=== PATIENT | male | born 1960 | race Caucasian/White ===

== ENCOUNTER → 2021-05-19 | Outpatient (CLI) | payer BC ==
[~2021-05-19] MED LIST: ALLOPURINOL300 MG PO; COLACE100 MG PO; COLCRYS0.6 MG PO; INDOCIN25 MG PO; LISINOPRIL5 MG PO; MELOXICAM5 MG PO; NKHM; OMEPRAZOLE40 MG PO; PERCOCET 5-3251 EACH PO; VICODIN 500 MG-1 TAB PO; ZOFRAN4 MG PO
== END | disposition home or self-care (01) ==
LOC: LAB 12:39 → COVID19 12:39
PROVIDERS: ATTEND Surgery
DX: Z01.818 Encounter for other preprocedural examination (principal); Z20.822 Contact with and (suspected) exposure to COVID-19

== ENCOUNTER → 2021-05-23 | Day surgery (SDC) | payer BC ==
[2021-05-19 13:04] VITALS: BP 169/90
[~2021-05-23] VITALS: Ht 187.9 cm; Wt 114.8 kg
[2021-05-23 09:30] VITALS: BP 168/99
[2021-05-23 11:08] VITALS: BP 166/107
[2021-05-23 11:23] VITALS: BP 163/106
[2021-05-23 11:38] VITALS: BP 149/94
[2021-05-23 11:53] VITALS: BP 163/91
== END | disposition home or self-care (01) ==
LOC: SDC 05-16 13:15
PROVIDERS: ATTEND Surgery
DX: K43.6 Other and unspecified ventral hernia with obstruction, without gangrene (principal); I10 Essential (primary) hypertension; M19.90 Unspecified osteoarthritis, unspecified site; K21.9 Gastro-esophageal reflux disease without esophagitis; M10.9 Gout, unspecified; Z98.890 Other specified postprocedural states; Z79.899 Other long term (current) drug therapy

== ENCOUNTER → 2022-02-10 | Outpatient (CLI) | payer BC ==
[2022-02-10 15:42] LABS: BILIRUBIN Negative (Negative); BLOOD Trace-Lysed (Negative); CLARITY Clear (Clear); COLOR Yellow (Yellow); GLUCOSE Negative (Negative); HEMATOCRIT 45.6 % (42.0-52.0); KETONE Negative (Negative); LEUKO ESTERASE Negative (Negative); MEAN CELL VOLUME 89.1 fl (80.0-94.0); MEAN CORPUSCULAR HGB 30.9 pg (27.0-31.0); MEAN CORPUSCULAR HGB CONC 34.6 g/dl (33.0-37.0); MEAN PLATELET VOLUME 10.4 fl (9.6-12.3); NITRITE Negative (Negative); PLATELET COUNT AUTOMATED 295 10*3/uL (130-400); RED BLOOD COUNT 5.12 10*6/uL (4.50-5.90); RED CELL DISTRI WIDTH 13.4 % (0-14.5); SPECIFIC GRAVITY 1.015 (1.001-1.030); UROBILINOGEN 0.2 E.U./dl (0.0-1.0); WHITE BLOOD COUNT 19.4 10*3/uL (4.8-10.8)
[2022-02-10 15:45] LABS: MANUAL DIFF REFLEX YES
[2022-02-10 15:53] LABS: BACTERIA 2+; EPITHELIAL CELLS 0-2
[2022-02-10 15:58] LABS: ALKALINE PHOSPHATASE 99 U/L (45-117); BUN 25 mg/dl (7-24); CHLORIDE 106 mmol/L (98-107); CREATININE 0.98 mg/dL (0.70-1.30); POTASSIUM 4.1 mmol/L (3.5-5.1); SGOT/AST 6 IU/L (3-35); SGPT/ALT 26 U/L (12-78); SODIUM 135 mmol/L (136-145); TOTAL PROTEIN 7.6 gm/dL (6.4-8.2)
[2022-02-10 16:24] LABS: PLATELET SUFFICIENCY NORMAL (NORMAL); TOTAL CELLS COUNTED 100 #CELLS
[2022-02-10 16:35] LABS: ACT PARTIAL THROMBO TIME 24.6 SECONDS (20.0-32.1)
== END | disposition home or self-care (01) ==
LOC: LAB 14:55
PROVIDERS: ATTEND Orthopaedic Surgery
DX: Z01.818 Encounter for other preprocedural examination (principal); M25.362 Other instability, left knee; M17.12 Unilateral primary osteoarthritis, left knee; R94.31 Abnormal electrocardiogram [ECG] [EKG]

== ENCOUNTER → 2022-02-21 | Outpatient (CLI) | payer BC ==
[2022-02-21 12:26] LABS: BASO # 0.1 10*3/uL (0.0-0.1); BASO % 0.5 % (0.0-1.0); EOS # 0.2 10*3/uL (0.0-0.4); EOS % 1.9 % (1.0-4.0); LYMPH # 1.7 10*3/uL (1.3-4.4); LYMPH % 15.7 % (27.0-41.0); MEAN CORPUSCULAR HGB 31.3 pg (27.0-31.0); MEAN CORPUSCULAR HGB CONC 34.8 g/dl (33.0-37.0); MEAN PLATELET VOLUME 9.7 fl (9.6-12.3); MONO # 1.1 10*3/uL (0.1-1.0); NEUT # 7.6 10*3/uL (2.3-7.9); PLATELET COUNT AUTOMATED 188 10*3/uL (130-400); RED BLOOD COUNT 4.89 10*6/uL (4.50-5.90); RED CELL DISTRI WIDTH 13.2 % (0-14.5); WHITE BLOOD COUNT 10.7 10*3/uL (4.8-10.8)
== END | disposition home or self-care (01) ==
LOC: LAB 12:10
PROVIDERS: ATTEND Family Medicine
DX: D72.829 Elevated white blood cell count, unspecified (principal)

== ENCOUNTER → 2023-04-28 | Outpatient (CLI) | payer BC ==
[2023-04-28 07:42] LABS: BUN 15 mg/dl (9-23); CHLORIDE 110 mmol/L (98-107); CHOLESTEROL 144 mg/dL (<200); LDL CHOLESTEROL 83 mg/dL (9-159); POTASSIUM 4.1 mmol/L (3.4-5.1); THYROID STIM HORMONE (HS) 1.399 uIU/ml (0.550-4.780); TRIGLYCERIDES 57 mg/dl (<150)
== END | disposition home or self-care (01) ==
LOC: LAB 07:02
PROVIDERS: ATTEND Family Medicine
DX: I10 Essential (primary) hypertension (principal); R73.9 Hyperglycemia, unspecified

== ENCOUNTER → 2023-05-29 | Outpatient (CLI) | payer BC | END | disposition home or self-care (01) | LOC: US 14:27 | PROVIDERS: ATTEND Family Medicine | DX: I80.01 Phlebitis and thrombophlebitis of superficial vessels of right lower extremity (principal) ==

== ENCOUNTER → 2023-11-21 | Outpatient (CLI) | payer BC ==
[2023-11-21 07:37] LABS: BASO # 0.1 10*3/uL (0.0-0.1); BASO % 0.7 % (0.0-1.0); EOS # 0.4 10*3/uL (0.0-0.4); EOS % 4.7 % (1.0-4.0); LYMPH # 1.6 10*3/uL (1.3-4.4); LYMPH % 21.9 % (27.0-41.0); MEAN CELL VOLUME 94.2 fl (80.0-94.0); MEAN CORPUSCULAR HGB 30.8 pg (27.0-31.0); MEAN CORPUSCULAR HGB CONC 32.7 g/dl (33.0-37.0); MEAN PLATELET VOLUME 9.7 fl (9.6-12.3); MONO # 0.5 10*3/uL (0.1-1.0); MONO % 7.1 % (3.0-9.0); NEUT # 4.9 10*3/uL (2.3-7.9); NEUT % 65.3 % (47.0-73.0); PLATELET COUNT AUTOMATED 248 10*3/uL (130-400); RED CELL DISTRI WIDTH 13.5 % (0-14.5); WHITE BLOOD COUNT 7.4 10*3/uL (4.8-10.8)
[2023-11-21 07:47] LABS: ACT PARTIAL THROMBO TIME 25.6 SECONDS (20.0-32.1)
[2023-11-21 07:53] LABS: BILIRUBIN Negative (Negative); BLOOD Negative (Negative); CLARITY Clear (Clear); COLOR Dark Yellow (Yellow); GLUCOSE Negative (Negative); KETONE Trace (Negative); LEUKO ESTERASE Negative (Negative); NITRITE Negative (Negative); SPECIFIC GRAVITY 1.025 (1.001-1.030)
[2023-11-21 08:09] LABS: MUCOUS 1+; RBC 0-2 rbc/hpf (0-2)
[2023-11-21 08:19] LABS: ALKALINE PHOSPHATASE 115 U/L (46-116); BUN 16 mg/dl (9-23); CHLORIDE 108 mmol/L (98-107); POTASSIUM 4.6 mmol/L (3.4-5.1); SGPT/ALT 30 U/L (5-49); TOTAL PROTEIN 7.5 gm/dL (6.0-8.0)
== END | disposition home or self-care (01) ==
LOC: LAB 07:15
PROVIDERS: ATTEND Orthopaedic Surgery
DX: Z01.818 Encounter for other preprocedural examination (principal); M17.11 Unilateral primary osteoarthritis, right knee; M23.91 Unspecified internal derangement of right knee; M25.361 Other instability, right knee

== ENCOUNTER → 2024-01-28 | Outpatient (CLI) | payer BC | END | disposition home or self-care (01) | LOC: US 09:30 | PROVIDERS: ATTEND Orthopaedic Surgery | DX: M79.651 Pain in right thigh (principal); R60.0 Localized edema; R20.0 Anesthesia of skin ==

== ENCOUNTER → 2024-02-08 | Outpatient (CLI) | payer BC ==
[2024-02-08 14:46] LABS: BILIRUBIN Negative (Negative); BLOOD Negative (Negative); CLARITY Clear (Clear); COLOR Yellow (Yellow); GLUCOSE Negative (Negative); KETONE 1+ (Negative); LEUKO ESTERASE Negative (Negative); NITRITE Negative (Negative); PH 5.5 (4.5-8.0); UROBILINOGEN 0.2 E.U./dl (0.0-1.0)
[2024-02-08 14:47] LABS: BASO # 0.1 10*3/uL (0.0-0.1); BASO % 0.7 % (0.0-1.0); EOS # 0.6 10*3/uL (0.0-0.4); EOS % 6.1 % (1.0-4.0); HEMATOCRIT 44.9 % (42.0-52.0); LYMPH # 2.5 10*3/uL (1.3-4.4); LYMPH % 26.8 % (27.0-41.0); MEAN CELL VOLUME 91.6 fl (80.0-94.0); MEAN CORPUSCULAR HGB CONC 32.7 g/dl (33.0-37.0); MEAN PLATELET VOLUME 9.6 fl (9.6-12.3); MONO # 0.8 10*3/uL (0.1-1.0); MONO % 8.6 % (3.0-9.0); NEUT # 5.3 10*3/uL (2.3-7.9); NEUT % 57.5 % (47.0-73.0); PLATELET COUNT AUTOMATED 239 10*3/uL (130-400); RED CELL DISTRI WIDTH 13.9 % (0-14.5); WHITE BLOOD COUNT 9.2 10*3/uL (4.8-10.8)
[2024-02-08 15:06] LABS: ALKALINE PHOSPHATASE 108 U/L (46-116); BUN 14 mg/dl (9-23); CHLORIDE 102 mmol/L (98-107); POTASSIUM 4.2 mmol/L (3.4-5.1); SGPT/ALT 18 U/L (5-49); TOTAL PROTEIN 7.6 gm/dL (6.0-8.0)
[2024-02-08 15:17] LABS: EPITHELIAL CELLS 0-2; RBC 0-2 rbc/hpf (0-2); WBC 0-2 wbc/hpf (0-5)
== END | disposition home or self-care (01) ==
LOC: LAB 14:25
PROVIDERS: ATTEND Family Medicine
DX: R60.9 Edema, unspecified (principal)

== ENCOUNTER → 2025-03-02 | Outpatient (CLI) | payer MEDICARE, OTHER ==
[2025-03-02 08:04] LABS: BASO # 0.1 10*3/uL (0.0-0.1); BASO % 0.8 % (0.0-1.0); EOS # 0.3 10*3/uL (0.0-0.4); EOS % 5.1 % (1.0-4.0); HEMATOCRIT 41.5 % (42.0-52.0); MEAN CELL VOLUME 91.2 fl (80.0-94.0); MEAN CORPUSCULAR HGB 31.4 pg (27.0-31.0); MEAN CORPUSCULAR HGB CONC 34.5 g/dl (33.0-37.0); MONO # 0.9 10*3/uL (0.1-1.0); MONO % 14.9 % (3.0-9.0); NEUT # 3.3 10*3/uL (2.3-7.9); NEUT % 52.9 % (47.0-73.0); PLATELET COUNT AUTOMATED 216 10*3/uL (130-400); RED BLOOD COUNT 4.55 10*6/uL (4.50-5.90); RED CELL DISTRI WIDTH 13.8 % (0-14.5); WHITE BLOOD COUNT 6.3 10*3/uL (4.8-10.8)
[2025-03-02 08:52] LABS: ALKALINE PHOSPHATASE 111 U/L (46-116); BUN 13 mg/dl (9-23); CHLORIDE 104 mmol/L (98-107); CHOLESTEROL 144 mg/dL (<200); CPK 85 U/L (34-171); FREE T4 1.02 ng/dl (0.89-1.76); LDL CHOLESTEROL 75 mg/dL (9-159); POTASSIUM 4.2 mmol/L (3.4-5.1); SGPT/ALT 47 U/L (5-49); TRIGLYCERIDES 101 mg/dl (<150); VITAMIN D, 25-HYDROXY 70.1 ng/mL (30-100)
== END | disposition home or self-care (01) ==
LOC: LAB 07:26
PROVIDERS: ATTEND Internal Medicine
DX: Z12.5 Encounter for screening for malignant neoplasm of prostate (principal); E11.40 Type 2 diabetes mellitus with diabetic neuropathy, unspecified; I10 Essential (primary) hypertension; R97.20 Elevated prostate specific antigen [PSA]; R79.82 Elevated C-reactive protein (CRP); R74.8 Abnormal levels of other serum enzymes; R53.83 Other fatigue; E55.9 Vitamin D deficiency, unspecified; E53.9 Vitamin B deficiency, unspecified